=== PATIENT | female | born 1980 | race Two or more races ===

== ENCOUNTER 2016-07-17 23:12 | Emergency (ER) | payer SELFPAY ==
[2016-07-17 23:18] VITALS: TEMP 98.2; O2SAT 98
[2016-07-17] MEDS ORDERED: HYDROmorphONE/DILAUDID 1 MG/ML SYR ONE (23:29)
[2016-07-17] MEDS ORDERED: ONDANSETRON 4 MG/2 ML VIAL ONE (23:29)
--- NOTE | 2016-07-17 23:37 | EDPHY ---
H & P Stated Complaint: abd pain, V/D Time Seen by Provider: 07/17/16 23:27 HPI/ROS: Chief complaint: Abdominal pain, vomiting and diarrhea HPI: 35-year-old woman presenting with 2 days of epigastric abdominal pain radiating to her back. She has had some nausea and vomiting. No hematemesis, no hematochezia or melena. Pain is worse at night and is gone in the morning. Has had a similar episode in April and was seen in [facility]. Denies any fevers or chills. No chest pain or shortness of breath. No urinary symptoms. At worst pain is a 9/10. There are no aggravating or alleviating factors. She took some acetaminophen with no significant relief. ROS: 10 point Review of Systems is negative except as noted in the HPI. Past medical history: None Past surgical history: Nasal surgery Medications: Oral contraceptives Allergies: No known drug allergies Physical exam: Gen: Awake, Alert, uncomfortable appearing HEENT: Nose: no rhinorrhea Eyes: PERRLA, EOMI Mouth: Moist mucosa Neck: Supple, no JVD Chest: nontender, lungs clear to auscultation Heart: S1, S2 normal, no murmur Abd: Soft, epigastric tenderness with right upper quadrant tenderness and a positive Anguiano sign, no lower abdominal tenderness, no guarding Back: no CVA tenderness, no midline tenderness Ext: no edema, non-tender Skin: no rash Neuro: CN II-XII intact, Sensation grossly intact, Strength 5/5 in bilateral upper and lower extremities - Personal History LMP (Females 10-55): 22-28 Days Ago Current Tetanus Diphtheria and Acellular Pertussis (TDAP): Yes - Medical/Surgical History Hx Asthma: No Hx Chronic Respiratory Disease: No Hx Diabetes: No Hx Cardiac Disease: No Hx Renal Disease: No Hx Cirrhosis: No Hx Alcoholism: No Hx HIV/AIDS: No Hx Splenectomy or Spleen Trauma: No Other PMH: nose surgery - Social History Smoking Status: Never smoked Constitutional: Initial Vital Signs Temperature (C) 36.8 C 07/17/16 23:16 Heart Rate 100 07/17/16 23:16 Respiratory Rate 18 07/17/16 23:16 Blood Pressure 133/74 H 07/17/16 23:16 O2 Sat (%) 98 07/17/16 23:16 O2 Delivery Mode Room Air Allergies/Adverse Reactions: No Known Allergies Allergy (Unverified 07/17/16 23:15) Home Medications: Medication Instructions Recorded Emma 28 Tablet 07/17/16 Medical Decision Making - Diagnostics Imaging: Gallbladder ultrasound, interpreted by Dr. Lewis. There is tiny gallbladder stones and sludge. There is no gallbladder wall thickening. The common bile duct is mildly dilated at 8 mm with sludge. There is no obvious stone in the common bile duct. Question if the patient as passing a stone. ED Course/Re-evaluation: 0115 patient is pain free. Repeat examination reveals a soft nontender abdomen. She has no epigastric tenderness. She has no right upper quadrant tenderness to deep palpation. I have discussed with the patient that she has gallstones will probably need a cholecystectomy. I have also for that is she is evidence that she was passing a stone or there is a stone in her common bile duct. She has some mild elevation in her liver function tests but not dramatic at this time. Her pain is completely resolved. She has a soft benign abdomen at this time. Given the ultrasound findings I think is likely that she has passed a gallstone. She does not want to stay in the hospital for further evaluation at this time. Will discharge her to home with follow-up with General surgery for arranging a cholecystectomy. The patient knows that if this pain returns she will report immediately to the emergency department for further evaluation for the possibility of a common bile duct stone. - Data Points Laboratory Results: Laboratory Results 07/17/16 23:40 07/17/16 23:40 07/17/16 07/17/16 07/17/16 23:40 23:40 23:40 WBC 6.09 10^3/uL 10^3/uL (3.80-9.50) RBC 4.14 10^6/uL L 10^6/uL (4.18-5.33) Hgb 12.7 g/dL g/dL (12.6-16.3) Hct 38.4 % % (38.0-47.0) MCV 92.8 fL fL (81.5-99.8) MCH 30.7 pg pg (27.9-34.1) MCHC 33.1 g/dL g/dL (32.4-36.7) RDW 12.4 % % (11.5-15.2) Plt Count 233 10^3/uL 10^3/uL (150-400) MPV 10.4 fL fL (8.7-11.7) Neut % (Auto) 58.9 % % (39.3-74.2) Lymph % (Auto) 28.2 % % (15.0-45.0) [place] % (Auto) 10.8 % % (4.5-13.0) Eos % (Auto) 1.5 % % (0.6-7.6) Baso % (Auto) 0.3 % % (0.3-1.7) Nucleat RBC Rel Count 0.0 % % (0.0-0.2) Absolute Neuts (auto) 3.58 10^3/uL 10^3/uL (1.70-6.50) Absolute Lymphs (auto) 1.72 10^3/uL 10^3/uL (1.00-3.00) Absolute Monos (auto) 0.66 10^3/uL 10^3/uL (0.30-0.80) Absolute Eos (auto) 0.09 10^3/uL 10^3/uL (0.03-0.40) Absolute Basos (auto) 0.02 10^3/uL 10^3/uL (0.02-0.10) Absolute Nucleated RBC 0.00 10^3/uL 10^3/uL (0-0.01) Immature Gran % 0.3 % % (0.0-1.1) Immature Gran # 0.02 10^3/uL 10^3/uL (0.00-0.10) Sodium 136 mEq/L mEq/L (134-144) Potassium 3.9 mEq/L mEq/L (3.5-5.2) Chloride 105 mEq/L mEq/L (97-110) Carbon Dioxide 20 mEq/l L mEq/l (22-31) Anion Gap 11 mEq/L mEq/L (8-16) BUN 8 mg/dL mg/dL (7-23) Creatinine 0.7 mg/dL mg/dL (0.6-1.0) Estimated GFR > 60 Glucose 104 mg/dL H mg/dL (70-100) Calcium 9.3 mg/dL mg/dL (8.5-10.4) Total Bilirubin 1.6 mg/dL H mg/dL (0.1-1.4) Conjugated Bilirubin 1.4 mg/dL H mg/dL (0.0-0.5) Unconjugated Bilirubin 0.2 mg/dL mg/dL (0.0-1.1) AST 113 IU/L H IU/L (14-46) ALT 95 IU/L H IU/L (9-52) Alkaline Phosphatase 72 IU/L IU/L (38-126) Total Protein 7.2 g/dL g/dL (6.3-8.2) Albumin 4.0 g/dL g/dL (3.5-5.0) Lipase 142.0 IU/L IU/L (23-300) Beta HCG, Qual NEGATIVE Medications Given: Discontinued Medications Hydromorphone HCl (Dilaudid) 0.5 mg IVP EDNOW ONE Stop: 07/17/16 23:55 Last Admin: 07/17/16 23:56 Dose: 0.5 mg Sodium Chloride (Ns) 1,000 mls @ 3,000 mls/hr IV ONCE ONE Stop: 07/18/16 00:12 Last Admin: 07/17/16 23:56 Dose: 1,000 mls Ondansetron HCl (Zofran) 4 mg IVP EDNOW ONE Stop: 07/17/16 23:53 Last Admin: 07/17/16 23:57 Dose: 4 mg Departure - Departure Disposition: Home, Routine, Self-Care Clinical Impression: Biliary colic, Gallstones Condition: Good Instructions: Biliary Colic (ED), Gallstones (ED) Additional Instructions: Follow up with Dr. Browne, general surgery, for evaluation in the next 3-4 days. Return immediately to the emergency department if your pain returns, your fevers or chills, nausea vomiting, or any other concerns. Referrals: NONE *PRIMARY CARE P,. [Primary Care Provider] - As per Instructions Greg Browne MD [Medical Doctor] - As per Instructions
[2016-07-17 23:48] LABS: % IMMATURE GRANULYOCYTES 0.3 % (0.0-1.1); ABSOLUTE IMMATURE GRANULOCYTES 0.02 10^3/uL (0.00-0.10); ADD DIFF? NO; ADD MORPH? NO; ADD SCAN? NO; ATYPICAL LYMPHOCYTE FLAG 30 (0-99); FRAGMENT RBC FLAG 0 (0-99); HEMATOCRIT 38.4 % (38.0-47.0); HEMOGLOBIN 12.7 g/dL (12.6-16.3); LEFT SHIFT FLG 0 (0-99); LIPEMIA HEMOLYSIS FLAG 80 (0-99); MEAN CELL HEMOGLOBIN 30.7 pg (27.9-34.1); MEAN CELL HEMOGLOBIN CONCENTR. 33.1 g/dL (32.4-36.7); MEAN CELL VOLUME 92.8 fL (81.5-99.8); MEAN PLATELET VOLUME 10.4 fL (8.7-11.7); PLATELET CLUMPS FLAG 0 (0-99); PLATELET COUNT 233 10^3/uL (150-400); RED BLOOD CELL COUNT 4.14 10^6/uL (4.18-5.33); RED CELL DISTRIBUTION WIDTH 12.4 % (11.5-15.2)
[2016-07-17] MEDS ORDERED: ONDANSETRON 4 MG/2 ML VIAL IVP ONE (23:52)
[2016-07-17] MEDS ORDERED: NS 1,000 ML IV ONE (23:53)
[2016-07-17] MEDS ORDERED: HYDROmorphONE/DILAUDID 1 MG/ML SYR IVP ONE (23:54)
[2016-07-18 00:42] LABS: ANION GAP 11 mEq/L (8-16); CALCIUM 9.3 mg/dL (8.5-10.4); CARBON DIOXIDE 20 mEq/l (22-31); CHLORIDE 105 mEq/L (97-110); CREATININE 0.7 mg/dL (0.6-1.0); GLOMERULAR FILTRATION RATE > 60; GLUCOSE 104 mg/dL (70-100); POTASSIUM 3.9 mEq/L (3.5-5.2); SODIUM 136 mEq/L (134-144); TOTAL PROTEIN 7.2 g/dL (6.3-8.2)
[2016-07-18 00:43] LABS: ALANINE AMINOTRANSFERASE 95 IU/L (9-52); ALKALINE PHOSPHATASE 72 IU/L (38-126); ASPARTATE AMINOTRANSFERASE 113 IU/L (14-46); BILIRUBIN,TOTAL 1.6 mg/dL (0.1-1.4); BILIRUBIN-CONJUGATED 1.4 mg/dL (0.0-0.5); BILIRUBIN-UNCONJUGATED 0.2 mg/dL (0.0-1.1)
[2016-07-18] MEDS ORDERED: HYDROCOD/APAP 5/325 PREPACK#6 BTL TAKEHOME ONE (01:20)
[2016-07-18 01:37] VITALS: BP 98/66; PULSE 84; RESP 16
== END 2016-07-18 01:37 | disposition home or self-care (01) ==
DX: K80.70 Calculus of gallbladder and bile duct without cholecystitis without obstruction (principal)
CPT/HCPCS: 96374; J1170; J2405

== ENCOUNTER 2016-11-30 22:25 | Observation (INO) | payer BC ==
[2016-11-30] MEDS ORDERED: NS 1,000 ML IV ONE (22:36)
[2016-11-30] MEDS ORDERED: ONDANSETRON 4 MG/2 ML VIAL IVP ONE (22:36)
[2016-11-30] MEDS ORDERED: FAMOTIDINE 20 MG/NACL 50 ML IV ONE (22:36)
--- NOTE | 2016-11-30 22:45 | EDPHY ---
H & P Stated Complaint: gallbladder pain seen in jul similar pain Time Seen by Provider: 11/30/16 22:33 HPI/ROS: HPI The patient presents with epigastric abdominal pain which has been present for the last 4 hours which started slowly after eating pizza for dinner. The pain is severe, achy, more to the right and radiates toward his her back. She does not have any vomiting. She did take a [place], however this did not help her pain. In July she was seen in this emergency room and diagnosed with gallstones. Her pain improved and she was discharged. She did not have insurance at the time, so she could not follow up with a general surgeon. She has had some episodes of pain over the last few months, however they have improved with [place]. REVIEW OF SYSTEMS Constitutional: No fever, no chills. Eyes: No discharge. ENT: No sore throat. Cardiovascular: No chest pain, no palpitations. Respiratory: No cough, no shortness of breath. Gastrointestinal: See HPI Genitourinary: No hematuria. Musculoskeletal: No back pain. Skin: No rashes. Neurological: No headache. PMHx: Gallstones Soc Hx: FHx: PHYSICAL General Appearance: Alert, no distress Eyes: Pupils equal and round no pallor or injection ENT, Mouth: Mucous membranes moist Respiratory: There are no retractions, lungs are clear to auscultation Cardiovascular: Regular rate and rhythm Gastrointestinal: Abdomen is soft with tenderness in the epigastrium Neurological: A&O, moves all extremities Skin: Warm and dry, no rashes Musculoskeletal: Neck is supple non tender Extremities: symmetrical, full range of motion Psychiatric: Patient is oriented X 3, there is no agitation Source: Patient Exam Limitations: No limitations - Personal History LMP (Females 10-55): 15-21 Days Ago Current Tetanus/Diphtheria Vaccine: Yes Current Tetanus Diphtheria and Acellular Pertussis (TDAP): Yes - Medical/Surgical History Hx Asthma: No Hx Chronic Respiratory Disease: No Hx Diabetes: No Hx Cardiac Disease: No Hx Renal Disease: No Hx Cirrhosis: No Hx Alcoholism: No Hx HIV/AIDS: No Hx Splenectomy or Spleen Trauma: No Other PMH: nose surgery - Social History Smoking Status: Never smoked Constitutional: Initial Vital Signs Temperature (C) 36.7 C 11/30/16 22:28 Heart Rate 88 11/30/16 22:28 Respiratory Rate 16 07/02/17 22:28 Blood Pressure 106/53 L 11/30/16 22:28 O2 Sat (%) 99 11/30/16 22:28 O2 Delivery Mode Room Air Allergies/Adverse Reactions: No Known Allergies Allergy (Unverified 07/17/16 23:15) Home Medications: Medication Instructions Recorded Emma 28 Tablet 07/17/16 Medical Decision Making - Diagnostics Imaging Results: Imaging Impressions Abdomen Ultrasound 11/30/16 22:36 Impression: 1. Chronic cholelithiasis without secondary ultrasound evidence of cholecystitis. The patient is tender over the gallbladder. If there is concern for cystic duct obstruction, then consider nuclear medicine HIDA scan. 2. Chronically dilated 1 cm common duct without evidence for choledocholithiasis , suggests that the patient may have passed stones in the past. Correlation with liver function tests is recommended. If there is clinical concern that the patient may have occult choledocholithiasis, then consider MRCP. Results discussed with Dr. Redd. Imaging: Discussed imaging studies w/ professional application designer Radiologist Differential Diagnosis: This is a 36-year-old female who presents with several hours of epigastric abdominal pain after eating pizza tonight. She has a history of gallstones. Differential diagnosis includes biliary colic, cholecystitis, pancreatitis, gastritis. In the emergency room, the patient was given IV fluids, Zofran, famotidine, morphine. This improved her pain somewhat, though not completely. She had labs checked and her transaminases were slightly elevated. Her right upper quadrant ultrasound revealed dilated CBD with multiple small gallstones with sonographic Anguiano's. Upon reassessment, the patient remained tender in the epigastrium and right upper quadrant. Because of this, I consulted with the general surgeon bone density technician Dr. Tha Farley. He will see the patient in the emergency room with likely cholecystectomy planned. - Data Points Laboratory Results: Laboratory Results 11/30/16 22:40 11/30/16 22:40 11/30/16 11/30/16 11/30/16 22:40 22:40 22:40 WBC 9.65 10^3/uL H 10^3/uL (3.80-9.50) RBC 4.03 10^6/uL L 10^6/uL (4.18-5.33) Hgb 12.9 g/dL g/dL (12.6-16.3) Hct 39.0 % % (38.0-47.0) MCV 96.8 fL fL (81.5-99.8) MCH 32.0 pg pg (27.9-34.1) MCHC 33.1 g/dL g/dL (32.4-36.7) RDW 12.5 % % (11.5-15.2) Plt Count 276 10^3/uL 10^3/uL (150-400) MPV 10.9 fL fL (8.7-11.7) Neut % (Auto) 47.0 % % (39.3-74.2) Lymph % (Auto) 42.0 % % (15.0-45.0) [place] % (Auto) 8.8 % % (4.5-13.0) Eos % (Auto) 1.6 % % (0.6-7.6) Baso % (Auto) 0.3 % % (0.3-1.7) Nucleat RBC Rel Count 0.0 % % (0.0-0.2) Absolute Neuts (auto) 4.54 10^3/uL 10^3/uL (1.70-6.50) Absolute Lymphs (auto) 4.05 10^3/uL H 10^3/uL (1.00-3.00) Absolute Monos (auto) 0.85 10^3/uL H 10^3/uL (0.30-0.80) Absolute Eos (auto) 0.15 10^3/uL 10^3/uL (0.03-0.40) Absolute Basos (auto) 0.03 10^3/uL 10^3/uL (0.02-0.10) Absolute Nucleated RBC 0.00 10^3/uL 10^3/uL (0-0.01) Immature Gran % 0.3 % % (0.0-1.1) Immature Gran # 0.03 10^3/uL 10^3/uL (0.00-0.10) Sodium 145 mEq/L H mEq/L (134-144) Potassium 4.0 mEq/L mEq/L (3.5-5.2) Chloride 110 mEq/L mEq/L (97-110) Carbon Dioxide 19 mEq/l L mEq/l (22-31) Anion Gap 16 mEq/L mEq/L (8-16) BUN 11 mg/dL mg/dL (7-23) Creatinine 0.7 mg/dL mg/dL (0.6-1.0) Estimated GFR > 60 Glucose 84 mg/dL mg/dL (70-100) Calcium 10.0 mg/dL mg/dL (8.5-10.4) Total Bilirubin 0.9 mg/dL mg/dL (0.1-1.4) Conjugated Bilirubin 0.5 mg/dL mg/dL (0.0-0.5) Unconjugated Bilirubin 0.4 mg/dL mg/dL (0.0-1.1) AST 65 IU/L H IU/L (14-46) ALT 69 IU/L H IU/L (9-52) Alkaline Phosphatase 48 IU/L IU/L (38-126) Total Protein 8.0 g/dL g/dL (6.3-8.2) Albumin 4.6 g/dL g/dL (3.5-5.0) Lipase 185.0 IU/L IU/L (23-300) Beta HCG, Qual NEGATIVE Medications Given: Discontinued Medications Sodium Chloride (Ns) 1,000 mls @ 0 mls/hr IV ONCE ONE; Wide Open PRN Reason: Protocol Stop: 11/30/16 22:37 Last Admin: 11/30/16 22:47 Dose: 1,000 mls Famotidine/Sodium Chloride (Pepcid 20 Mg (Premix)) 50 mls @ 200 mls/hr IV EDNOW ONE Stop: 11/30/16 22:50 Last Admin: 11/30/16 22:50 Dose: 50 mls Morphine Sulfate (Morphine) 4 mg IVP EDNOW ONE Stop: 11/30/16 22:52 Last Admin: 11/30/16 22:59 Dose: 4 mg Ondansetron HCl (Zofran) 4 mg IVP EDNOW ONE Stop: 11/30/16 22:37 Last Admin: 11/30/16 22:48 Dose: 4 mg Departure - Departure Disposition: [facility] Inpatient Acute Clinical Impression: Acute cholecystitis Condition: Fair Referrals: NONE *PRIMARY CARE P,. [Primary Care Provider] - As per Instructions
[2016-11-30 22:47] LABS: % IMMATURE GRANULYOCYTES 0.3 % (0.0-1.1); ABSOLUTE IMMATURE GRANULOCYTES 0.03 10^3/uL (0.00-0.10); ADD DIFF? NO; ADD MORPH? NO; ADD SCAN? NO; ATYPICAL LYMPHOCYTE FLAG 10 (0-99); FRAGMENT RBC FLAG 0 (0-99); HEMOGLOBIN 12.9 g/dL (12.6-16.3); LEFT SHIFT FLG 0 (0-99); LIPEMIA HEMOLYSIS FLAG 80 (0-99); MEAN CELL HEMOGLOBIN CONCENTR. 33.1 g/dL (32.4-36.7); MEAN CELL VOLUME 96.8 fL (81.5-99.8); MEAN PLATELET VOLUME 10.9 fL (8.7-11.7); PLATELET CLUMPS FLAG 0 (0-99); PLATELET COUNT 276 10^3/uL (150-400); RED BLOOD CELL COUNT 4.03 10^6/uL (4.18-5.33); RED CELL DISTRIBUTION WIDTH 12.5 % (11.5-15.2)
[2016-11-30 23:00] LABS: ALANINE AMINOTRANSFERASE 69 IU/L (9-52); ALBUMIN 4.6 g/dL (3.5-5.0); ALKALINE PHOSPHATASE 48 IU/L (38-126); ANION GAP 16 mEq/L (8-16); ASPARTATE AMINOTRANSFERASE 65 IU/L (14-46); BILIRUBIN,TOTAL 0.9 mg/dL (0.1-1.4); BILIRUBIN-CONJUGATED 0.5 mg/dL (0.0-0.5); BILIRUBIN-UNCONJUGATED 0.4 mg/dL (0.0-1.1); CARBON DIOXIDE 19 mEq/l (22-31); CHLORIDE 110 mEq/L (97-110); CREATININE 0.7 mg/dL (0.6-1.0); GLOMERULAR FILTRATION RATE > 60; GLUCOSE 84 mg/dL (70-100); SODIUM 145 mEq/L (134-144)
[2016-11-30] MEDS ORDERED: D5W 1/2 NS W/ 20 KCl/L 1,000 ML IV SCH (23:45)
[2016-11-30] MEDS ORDERED: ONDANSETRON 4 MG/2 ML VIAL IVP PRN (23:57)
--- NOTE | 2016-12-01 | PDHPUP ---
History & Physical Update H&P update statement: This history and physical update is based on an assessment of the patient which was completed after admission or registration (within 24 hours), but prior to the surgery/procedure. H&P update: H&P reviewed & patient examined, no change in patient's condition since H&P completed
--- NOTE | 2016-12-01 00:04 | SOAPPROG ---
GIL[facility] Progress Note Assessment/Plan: Assessment: 36-YEAR-OLD FEMALEWITH RECURRENT CHOLECYSTITIS/ US MULTIPLE STONES NONICTERIC, ABD RUQ TENDERNESS CHEST CLEAR/ COR OK RISKS AND OPTIONS FULLY DISCUSSED Plan:CELESTINA MATAMOROS IN AM 12/01/16 00:01 Objective: Vital Signs Temp Pulse Resp BP Pulse Ox 37 C 83 14 107/78 99 11/30/16 23:56 11/30/16 23:42 11/30/16 23:42 11/30/16 23:42 11/30/16 23:42 11/29/16 11/30/16 12/01/16 05:59 05:59 05:59 Intake Total 1000 Balance 1000 ICD10 Worksheet Patient Problems: Problems Problem Status Onset Acute cholecystitis Acute
--- NOTE | 2016-12-01 00:23 | GHP ---
[f rep st] PREOP HISTORY AND PHYSICAL DATE OF ADMISSION: 11/30/2016 HISTORY OF PRESENT ILLNESS: Patient is a 36-year-old female with 3-4 months of abdominal pain inter mittent secondary to gallstones; however, tonight she had much worse pain going into her back. She is admitted at this time for laparoscopic cholecystectomy. Risks and options have been fully discus sed and she wishes to proceed. She is not jaundiced. Her LFTs were slightly elevated. She has had no previous abdominal surgeries. PAST MEDICAL HISTORY: Nasal surgery. No other major hospitalizations, surgeries or serious medical problems. REVIEW OF SYSTEMS: Reveals no serious medical issues on a full 10-point review of systems. She den ies smoking, asthma, cardiopulmonary symptoms or any other problems. MEDICATIONS: None. ALLERGIES: None. PHYSICAL EXAMINATION: GENERAL: An alert 36-year-old female in no acute distress. HEAD/NECK: Exam is benign without icterus or adenopathy. CHEST: Clear to auscultation and percussion. CARDIAC: Regular rhythm. ABDOMEN: Soft. She is slightly tender in the right upper quadrant. She is quite thin. EXTREMITIES: Benign with full pulses. NEUROLOGIC: Physiologic. PSYCHIATRIC: Exam reveals her to be alert, competent, oriented. LABORATORY DATA: Reveals a normal white count. Her LFTs are a tiny bit elevated. She has ultrasou nd revealing multiple stones and 1 cm common duct. IMPRESSION: Cholelithiasis, acute cholecystitis. PLAN: Laparoscopic cholecystectomy. Risks and options have been fully discussed and she wishes to proceed. /[id number]/MODL
[2016-12-01] MEDS ORDERED: BUPIVACAINE 0.5% 30 ML SDV ONE (04:08)
[2016-12-01 05:20] LABS: % IMMATURE GRANULYOCYTES 0.4 % (0.0-1.1); ABSOLUTE IMMATURE GRANULOCYTES 0.03 10^3/uL (0.00-0.10); ADD DIFF? NO; ADD MORPH? NO; ADD SCAN? NO; ATYPICAL LYMPHOCYTE FLAG 10 (0-99); FRAGMENT RBC FLAG 0 (0-99); HEMATOCRIT 32.8 % (38.0-47.0); HEMOGLOBIN 10.7 g/dL (12.6-16.3); LEFT SHIFT FLG 10 (0-99); LIPEMIA HEMOLYSIS FLAG 80 (0-99); MEAN CELL HEMOGLOBIN 31.8 pg (27.9-34.1); MEAN CELL HEMOGLOBIN CONCENTR. 32.6 g/dL (32.4-36.7); MEAN CELL VOLUME 97.6 fL (81.5-99.8); MEAN PLATELET VOLUME 11.1 fL (8.7-11.7); PLATELET CLUMPS FLAG 0 (0-99); PLATELET COUNT 224 10^3/uL (150-400); RED BLOOD CELL COUNT 3.36 10^6/uL (4.18-5.33); RED CELL DISTRIBUTION WIDTH 12.7 % (11.5-15.2)
--- NOTE | 2016-12-01 05:30 | PDANEPAE ---
ANE History of Present Illness presents for lap katherine DONELL Past Medical History - Cardiovascular History Hx Hypertension: No Hx Arrhythmias: No Hx Chest Pain: No Hx Coronary Artery / Peripheral Vascular Disease: No Hx CHF / Valvular Disease: No Hx Palpitations: No - Pulmonary History Hx COPD: No Hx Asthma/Reactive Airway Disease: No Hx Recent Upper Respiratory Infection: No Hx Oxygen in Use at Home: No Hx Sleep Apnea: No Sleep Apnea Screening Result - Last Documented: Negative - Endocrine History Hx Diabetes: No Hypothyroid: No Hyperthyroid: No Obesity: no - Renal History Hx Renal Disorders: No - Liver History Hx Hepatic Disorders: No - Neurological & Psychiatric Hx Hx Neurological and Psychiatric Disorders: No - Cancer History Hx Cancer: No - Congenital Disorder History Hx Congenital Disorders: No - GI History Hx Gastrointestinal Disorders: No - Chronic Pain History Chronic Pain: No - Surgical History Prior Surgeries: nose ANE Review of Systems Review of systems is: negative - Exercise capacity Exercise capacity: >=4 METS ANE Patient History - Allergies Allergies/Adverse Reactions: No Known Allergies Allergy (Unverified 07/17/16 23:15) - Home Medications Home Medications: Emma 28 Tablet 07/17/16 [Last Taken Unknown] - NPO status NPO Since - Liquids (Date): 12/01/16 NPO Since - Liquids (Time): 00:00 NPO Since - Solids (Date): 12/01/16 NPO Since - Solids (Time): 00:00 - Smoking Hx Smoking Status: Never smoked ANE Labs/Vital Signs - Labs Result Diagrams: 12/01/16 04:56 11/30/16 22:40 - Vital Signs Blood Pressure: 99/59 Heart Rate: 96 Respiratory Rate: 16 O2 Sat (%): 97 Height: 151 cm Weight: 44 kg ANE Physical Exam - Airway Neck exam: FROM Mallampati Score: Class 1 Mouth exam: normal dental/mouth exam - Pulmonary Pulmonary: no respiratory distress - Cardiovascular Cardiovascular: regular rate and rhythym - ASA Status ASA Status: I ANE Anesthesia Plan Anesthesia Plan: general endotracheal anesthesia
[2016-12-01] MEDS ORDERED: NALOXONE HCL 0.4 MG/ML INJ IVP PRN (05:31)
[2016-12-01] MEDS ORDERED: MIDAZOLAM 2 MG/2 ML VIAL IVP ONE (05:31)
[2016-12-01] MEDS ORDERED: ONDANSETRON 4 MG/2 ML VIAL IVP PRN (05:31)
[2016-12-01] MEDS ORDERED: PROMETHAZINE HCL 25 MG/ML INJ IVP PRN (05:31)
[2016-12-01] MEDS ORDERED: HYDROmorphONE/DILAUDID 1 MG/ML SYR IVP PRN (05:31)
[2016-12-01] MEDS ORDERED: DEXAMETHASONE 4 MG/ML VIAL IVP PRN (05:31)
[2016-12-01] MEDS ORDERED: fentaNYL 100 MCG/2 ML INJ ONE ×3 (05:35→07:51)
[2016-12-01] MEDS ORDERED: HEPARIN 1000 UNIT/1 ML MDV ONE (05:36)
[2016-12-01] MEDS ORDERED: PROPOFOL/EMULSION 500 MG/50 ML BOTTLE IV ONE (05:36)
[2016-12-01 05:37] LABS: ALANINE AMINOTRANSFERASE 56 IU/L (9-52); ALBUMIN 3.2 g/dL (3.5-5.0); ALKALINE PHOSPHATASE 39 IU/L (38-126); AMYLASE 67 IU/L (30-110); ASPARTATE AMINOTRANSFERASE 49 IU/L (14-46); BILIRUBIN,TOTAL 0.7 mg/dL (0.1-1.4); BILIRUBIN-CONJUGATED 0.4 mg/dL (0.0-0.5); BILIRUBIN-UNCONJUGATED 0.3 mg/dL (0.0-1.1)
[2016-12-01] MEDS ORDERED: ceFAZolin 1 GM/5 ML SYR ONE (05:37)
[2016-12-01] MEDS ORDERED: MIDAZOLAM 2 MG/2 ML VIAL ONE (05:39)
--- NOTE | 2016-12-01 07:17 | POSTANESTH ---
Post Anesthetic Evaluation Cardiovascular Status: Normal, Stable Respiratory Status: Normal, Stable Level of Consciousness/Mental Status: Moderately Sleepy Pain Control: Adequate, Prn Tx Ordered Nausea/Vomiting Control: Adequate, Prn Tx Ordered Complications Possibly Related to Anesthesia: None Noted
--- NOTE | 2016-12-01 07:23 | POSTOPPROG ---
Post Op Note Date of Operation: 12/01/16 Surgeon: Armando Farley Anesthesiologist: BHARATI Anesthesia: GET(General Endotracheal) Pre-op Diagnosis: ACUTE CHOLECYSTITIS Post-op Diagnosis: SAME Indication: PAIN, RECURRENT Procedure: LAP CHOLEY, WEDGE LIVER BX Findings: DILATED GALLBLADDER, MULTIPLE STONES Inf/Abcess present in the surg proc area at time of surgery?: Yes Depth: Organ Space EBL: Minimal Complications: 0 Specimen(s): GALLBLADDER, LIVER BX
[2016-12-01] MEDS ORDERED: HYDROCODONE/APAP 5/325 TAB PO PRN (08:01)
[2016-12-01] MEDS: fentaNYL 100 MCG/2 ML INJ IVP PRN ×3 (08:04→08:26)
[2016-12-01] MEDS ORDERED: ERTAPENEM 1 GM in NS 100 ML IV SCH (09:00)
[2016-12-01 09:03] VITALS: RESP 16
[2016-12-01] MEDS: HYDROmorphONE/DILAUDID 1 MG/ML SYR IVP PRN ×2 (09:30→13:08)
--- NOTE | 2016-12-01 09:46 | SOAPPROG ---
SOAP Progress Note Assessment/Plan: Assessment/Plan: 36 Y F s/p lap katherine, POD#0. Advance diet. PO pain meds. Routine post op care. Dispo: possibly home later today if does well. S: pain controlled. no n/v O: alert, nad no jaundice ctab rrr abd soft, inc cdi 12/01/16 09:44 Objective: Vital Signs Temp Pulse Resp BP Pulse Ox 36.6 C 81 16 109/79 100 12/01/16 09:01 12/01/16 09:01 12/01/16 09:01 12/01/16 09:01 12/01/16 09:01 Laboratory Results 12/01/16 04:56 11/30/16 12/01/16 12/02/16 05:59 05:59 05:59 Intake Total 1000 115 Output Total 400 Balance 600 115 ICD10 Worksheet Patient Problems: Problems Problem Status Onset Acute cholecystitis Acute
[2016-12-01 15:06] VITALS: PULSE 98
[2016-12-01 19:48] VITALS: BP 105/61; TEMP 98.3; O2SAT 99
--- NOTE | 2016-12-11 07:26 | GOP ---
[f rep st] OPERATIVE REPORT DATE OF OPERATION: SURGEON: Armando Farley MD PREOPERATIVE DIAGNOSIS: Cholelithiasis and acute cholecystitis. POSTOPERATIVE DIAGNOSIS: Cholelithiasis and acute cholecystitis. PROCEDURE PERFORMED: Laparoscopic cholecystectomy and wedge liver biopsy. FINDINGS: Patient was found to have a dilated gallbladder with multiple stones. She had a reasonab ly normal-appearing liver and small ducts. DESCRIPTION OF PROCEDURE: Patient taken to the operating room where she received satisfactory gener al endotracheal anesthesia by Dr. Garcia. She was placed in supine position, prepped, and draped in the usual sterile fashion. A periumbilical incision was made. A Veress needle inserted. Pneumope ritoneum was established. Trocar was introduced. Laparoscope was introduced. Good visualization w as obtained. Three other trocars were placed in the upper abdomen under direct vision. The gallbla dder was dilated. It was covered with some adhesions which were easily taken down. The gallbladder itself was relatively soft. The entire gallbladder was dissected free, and exposed, and the cystic triangle was carefully dissected free. The cystic duct and the cystic artery were isolated with ca re to avoid injury to the common bile duct. The ducts were small enough not felt necessary to do a cholangiogram. Cystic duct and cystic artery were multiple hemoclipped and divided. Peritoneum of the gallbladder was incised and the gallbladder was dissected free from the bed of the hepatic fossa and extract from the upper midline port site. A short edge biopsy was made of the left lobe of the liver because of the persistent liver function abnormalities. Wedge resection was done using the l aparoscopic scissors. Then hemostasis was obtained with electrocautery. Trocars removed under dire ct vision. Pneumopreperitoneum was released. Trocar sites were closed with 0 Vicryl for the fascia , 4-0 Monocryl subcuticular stitch for the skin. All the sites were infiltrated with 0.5% Marcaine. She tolerated the procedure well. She was taken to the recovery room in satisfactory condition. There were no complications. /[id number]/MODL
== END 2016-12-01 20:01 | disposition home or self-care (01) ==
LOC: F3E 12-01 00:04
PROVIDERS: ADMIT Surgery; ATTEND Surgery
PROC: 0FB04ZX Excision of Liver, Percutaneous Endoscopic Approach, Diagnostic (ICD-10-PCS; principal; 2016-11-30)
PROC: 0FT44ZZ Resection of Gallbladder, Percutaneous Endoscopic Approach (ICD-10-PCS; principal; 2016-11-30)
DX: K80.00 Calculus of gallbladder with acute cholecystitis without obstruction (principal); K73.9 Chronic hepatitis, unspecified
CPT/HCPCS: 47379; 47562; 76705; 96361; 96374; 96375; 96376; 99285; G0378; J1170; J1335; J2250; J2405; J2704; J3010

== ENCOUNTER 2017-11-30 12:16 | Emergency (ER) | payer BC ==
[2017-11-30] MEDS ORDERED: PROPARACAINE 0.5% 15 ML OPHT DROP ONE (13:01)
[2017-11-30] MEDS ORDERED: PROPARACAINE/FLUORESCEIN SOD 5 ML OPHT.BTL ONE (13:06)
[2017-11-30] MEDS ORDERED: PROPARACAINE/FLUORESCEIN SOD 5 ML OPHT.BTL OP ONE (13:10)
--- NOTE | 2017-11-30 13:14 | EDPHY ---
H & P Stated Complaint: awakened today with bilat blurry vision Time Seen by Provider: 11/30/17 12:32 HPI/ROS: CHIEF COMPLAINT: Blurry vision HISTORY OF PRESENT ILLNESS: Patient is a 37-year-old female who states that she had blurry vision that began about 3 hr ago. She states initially was in a some small spot in the left visual field. Seem to be affected in both eyes. No headache. No fever. No trauma. No foreign body sensation. No discharge. No erythema. It gradually enlarged over about an hour and then began to resolve. It is now gone. Her visual acuity is normal. She does not wear glasses or contacts. No focal weakness or deficits. REVIEW OF SYSTEMS: Constitutional: denies: chills, fever, recent illness, recent injury EENTM: See HPI Respiratory: denies: cough, shortness of breath Cardiac: denies: chest pain, irregular heart rate, lightheadedness, palpitations Gastrointestinal/Abdominal: denies: abdominal pain, diarrhea, nausea, vomiting, blood streaked stools Genitourinary: denies: dysuria, frequency, hematuria, pain Musculoskeletal: denies: joint pain, muscle pain Skin: denies: lesions, rash, jaundice, bruising Neurological: denies: headache, numbness, paresthesia, tingling, dizziness, weakness Hematologic/Lymphatic: denies: blood clots, easy bleeding, easy bruising Immunologic/allergic: denies: HIV/AIDS, transplant EXAM: GENERAL: Well-appearing, well-nourished and in no acute distress. HEAD: Atraumatic, normocephalic. EYES: Pupils equal round and reactive to light, extraocular movements intact, sclera anicteric, conjunctiva are normal. Visual acuity 20/20 in 20/25. Examined with slit lamp, no cells and flare, no foreign body, no abrasions seen with floor seen. Negative Fawn sign. Checked for pressures in each eye was 11. No abnormalities seen on retinal exam. ENT: TMs normal, nares patent, oropharynx clear without exudates. Moist mucous membranes. NECK: Normal range of motion, supple without lymphadenopathy or JVD. LUNGS: Breath sounds clear to auscultation bilaterally and equal. No wheezes rales or rhonchi. HEART: Regular rate and rhythm without murmurs, rubs or gallops. ABDOMEN: Soft, nontender, normoactive bowel sounds. No guarding, no rebound. No masses appreciated. BACK: No CVA tenderness, no spinal tenderness, step-offs or deformities EXTREMITIES: Normal range of motion, no pitting or edema. No clubbing or cyanosis. NEUROLOGICAL: Cranial nerves II through XII grossly intact. Normal speech, normal gait. 5/5 strength, normal movement in all extremities, normal sensation PSYCH: Normal mood, normal affect. SKIN: Warm, dry, normal turgor, no visible rashes or lesions. Source: Patient Exam Limitations: No limitations - Personal History LMP (Females 10-55): 1-7 Days Ago Current Tetanus/Diphtheria Vaccine: Yes - Medical/Surgical History Hx Asthma: No Hx Chronic Respiratory Disease: No Hx Diabetes: No Hx Cardiac Disease: No Hx Renal Disease: No Hx Cirrhosis: No Hx Alcoholism: No Hx HIV/AIDS: No Hx Splenectomy or Spleen Trauma: No Other PMH: nose surgery - Social History Smoking Status: Never smoked Constitutional: Initial Vital Signs Temperature (C) 36.6 C 11/30/17 12:22 Heart Rate 97 11/30/17 12:22 Respiratory Rate 16 11/30/17 12:22 Blood Pressure 111/76 11/30/17 12:22 O2 Sat (%) 98 11/30/17 12:22 O2 Delivery Mode Room Air Allergies/Adverse Reactions: No Known Allergies Allergy (Verified 11/30/17 12:21) Home Medications: Medication Instructions Recorded Ethinyl Estradiol/Drospirenone 1 each PO DAILY #0 07/17/16 [Emma 28 Tablet] Nika Allergy 11/30/17 Flonase Allergy Relief 11/30/17 Medical Decision Making ED Course/Re-evaluation: I suspect that the patient has a vitreous detachment. It is now resolved. No headache or neurologic symptoms. I will have her follow up with Ophthalmology. She and her are happy with this plan and we discussed indications for returning. Differential Diagnosis: Partial list of the Differential diagnosis considered include but were not limited to; which is detachment, foreign body and although unlikely based on the history and physical exam, I also considered abrasion, conjunctivitis, retinal detachment, iritis, retinal artery occlusion. I discussed these differential diagnoses and the plan with the patient as well as the usual and expected course. The patient understands that the diagnosis is provisional and that in medicine we are not always correct and that further workup is often warranted. Usual and customary warnings were given. All of the patient's questions were answered. The patient was instructed to return to the emergency department should the symptoms at all worsen or return, otherwise to followup with the physician as we discussed. - Data Points Medications Given: Discontinued Medications Proparacaine HCl/Fluorescein Sodium (Flucaine) 2 drops OP EDNOW ONE Stop: 11/30/17 13:11 Last Admin: 11/30/17 13:20 Dose: Not Given Departure - Departure Disposition: Home, Routine, Self-Care Clinical Impression: Vitreous detachment Qualifiers: Laterality: unspecified laterality Qualified Code(s): H43.819 - Vitreous degeneration, unspecified eye Condition: Fair Instructions: Blurred Vision (ED) Referrals: Warren Olson MD [Medical Doctor] - As per Instructions
[2017-11-30 13:31] VITALS: BP 116/65
== END 2017-11-30 13:36 | disposition home or self-care (01) ==
DX: H43.813 Vitreous degeneration, bilateral (principal)

== ENCOUNTER → 2018-05-27 | Outpatient (CLI) | payer BC | PROVIDERS: ATTEND Internal Medicine | DX: R13.10 Dysphagia, unspecified (principal); R63.3 Feeding difficulties | CPT/HCPCS: 92611-GN ==

== ENCOUNTER 2018-06-03 15:25 | Emergency (ER) | payer BC ==
[2018-06-03] MEDS ORDERED: NS 1,000 ML IV ONE ×2 (15:59→16:47)
--- NOTE | 2018-06-03 16:03 | EDPHY ---
H & P Time Seen by Provider: 06/03/18 15:51 HPI/ROS: CHIEF COMPLAINT: Dehydration, IV fluids HISTORY OF PRESENT ILLNESS: Patient had a traumatic event happened several months ago and has been difficulty with swallowing or eating ever since. She is working with the therapist to center to the emergency department today for IV fluids. She does feel thirsty, she is still urinating. No bowel movement in 2 days. She denies feeling lightheaded or dizzy or having syncope. No sore throat. No coughing. REVIEW OF SYSTEMS: Eye: no change in vision ENT: no sore throat Cardiac: no chest pain or syncope Pulmonary: no cough or SOB Abdomen: no vomiting, diarrhea, has some intermittent abdominal pain since the incident but none right now abdominal pain Musculoskeletal: no back pain Skin: no rash Neuro: no headache Constitutional: no fever : no urinary symptoms A comprehensive 10 point review of systems is otherwise negative aside from elements mentioned in the history of present illness. PAST MEDICAL HISTORY: Nasal surgery and as above Social history: here with her General Appearance: Alert and conversant, cooperative. Eyes: No scleral icterus. ENT, Mouth: Slightly dry mucous membranes. Respiratory: Normal respiratory effort, breath sounds equal, lungs are clear to auscultation. Cardiovascular: Regular rate and rhythm. Gastrointestinal: Abdomen is soft and non tender. Neurological: Alert, face symmetric, normal motor and sensory in extremities. Skin: Warm and dry, no rashes. Musculoskeletal: No peripheral edema. Psychiatric: Not agitated. Emergency Department course/MDM: IV normal saline ordered. She appears mildly dehydrated but not severely. Does not appear to have airway compromise or esophageal obstruction or foreign body impaction. 1637: lab reviewed, CO2 of 18 consistent with dehydration otherwise normal electrolytes. 1744: Dr. Lezama, will contact [facility] to arrange followup regarding possible need for repeated IV fluids. Patient would like to be discharged with office follow-up which I think is reasonable. Smoking Status: Never smoked Constitutional: Initial Vital Signs Temperature (C) 36.7 C 06/03/18 15:30 Heart Rate 99 06/03/18 15:30 Respiratory Rate 18 06/03/18 15:30 Blood Pressure 131/79 H 06/03/18 15:30 O2 Sat (%) 99 06/03/18 15:30 O2 Delivery Mode Room Air Allergies/Adverse Reactions: No Known Allergies Allergy (Verified 06/03/18 15:33) Home Medications: Medication Instructions Recorded Ethinyl Estradiol/Drospirenone 1 each PO DAILY #0 07/17/16 [Emma 28 Tablet] Nika Allergy 11/30/17 Flonase Allergy Relief 11/30/17 Medical Decision Making - Data Points Laboratory Results: Laboratory Results 06/03/18 15:58 06/03/18 15:58 06/03/18 06/03/18 06/03/18 15:58 15:58 15:58 WBC 7.27 10^3/uL 10^3/uL (3.80-9.50) RBC 4.27 10^6/uL 10^6/uL (4.18-5.33) Hgb 13.7 g/dL g/dL (12.6-16.3) Hct 41.2 % % (38.0-47.0) MCV 96.5 fL fL (81.5-99.8) MCH 32.1 pg pg (27.9-34.1) MCHC 33.3 g/dL g/dL (32.4-36.7) RDW 12.4 % % (11.5-15.2) Plt Count 255 10^3/uL 10^3/uL (150-400) MPV 10.9 fL fL (8.7-11.7) Neut % (Auto) 59.2 % % (39.3-74.2) Lymph % (Auto) 31.5 % % (15.0-45.0) [place] % (Auto) 7.8 % % (4.5-13.0) Eos % (Auto) 0.8 % % (0.6-7.6) Baso % (Auto) 0.4 % % (0.3-1.7) Nucleat RBC Rel Count 0.0 % % (0.0-0.2) Absolute Neuts (auto) 4.30 10^3/uL 10^3/uL (1.70-6.50) Absolute Lymphs (auto) 2.29 10^3/uL 10^3/uL (1.00-3.00) Absolute Monos (auto) 0.57 10^3/uL 10^3/uL (0.30-0.80) Absolute Eos (auto) 0.06 10^3/uL 10^3/uL (0.03-0.40) Absolute Basos (auto) 0.03 10^3/uL 10^3/uL (0.02-0.10) Absolute Nucleated RBC 0.00 10^3/uL 10^3/uL (0-0.01) Immature Gran % 0.3 % % (0.0-1.1) Immature Gran # 0.02 10^3/uL 10^3/uL (0.00-0.10) Sodium 139 mEq/L mEq/L (135-145) Potassium 3.9 mEq/L mEq/L (3.5-5.2) Chloride 110 mEq/L mEq/L (97-110) Carbon Dioxide 18 mEq/l L mEq/l (22-31) Anion Gap 11 mEq/L mEq/L (6-14) BUN 12 mg/dL mg/dL (7-23) Creatinine 0.6 mg/dL mg/dL (0.6-1.0) Estimated GFR > 60 Glucose 76 mg/dL mg/dL (70-100) Calcium 9.9 mg/dL mg/dL (8.5-10.4) Beta HCG, Qual NEGATIVE Medications Given: Discontinued Medications Sodium Chloride (Ns) 1,000 mls @ 0 mls/hr IV EDNOW ONE; Wide Open PRN Reason: Protocol Stop: 06/03/18 16:00 Last Admin: 06/03/18 16:19 Dose: 1,000 mls Sodium Chloride (Ns) 1,000 mls @ 0 mls/hr IV EDNOW ONE; Wide Open PRN Reason: Protocol Stop: 06/03/18 16:48 Last Admin: 06/03/18 16:50 Dose: 1,000 mls Departure - Departure Disposition: Home, Routine, Self-Care Clinical Impression: Dehydration Condition: Good Instructions: Dehydration (ED) Additional Instructions: The emergency physician talk to [facility] she will [facility] them tonight or tomorrow regarding your possible need for repeated IV fluids before your therapy is complete. Referrals: Melly Jay MD [Primary Care Provider] - As per Instructions (Call your primary care office tomorrow.)
[2018-06-03 16:10] LABS: PLATELET COUNT 255 10^3/uL (150-400)
[2018-06-03 18:03] VITALS: BP 128/78
== END 2018-06-03 18:03 | disposition home or self-care (01) ==
DX: E86.0 Dehydration (principal); R13.10 Dysphagia, unspecified